=== PATIENT | female | born 1980 | race Caucasian/White ===

== ENCOUNTER 2017-11-29 22:26 | Emergency (ER) | payer MEDICAID ==
[2017-11-29] MEDS ORDERED: Bacitracin/Neomycin/Polymyxin B Oint 0.9 GM U/D Packet TOP ONE (22:33)
[2017-11-29] MEDS ORDERED: Diphtheria,Pertussis(Acell),Tetanus Vaccine 0.5 ML Syringe IM ONE (22:33)
--- NOTE | 2017-11-29 22:34 | EDM.PDOC ---
ED HPI GENERAL MEDICAL PROBLEM - General Chief Complaint: General Stated Complaint: "BARBWIRE POKED A HOLE IN MY SKIN" Time Seen by Provider: 11/29/17 22:29 Source of Information: Reports: Patient History Limitations: Reports: No Limitations - History of Present Illness INITIAL COMMENTS - FREE TEXT/NARRATIVE: Lacie is a 37 yo female who presents to the ER with concerns of a puncture wound to her left wrist. She states she had tripped on some dangelo wire and ended up falling into a dangelo. She noticed some bleeding right away but it had stopped. She has noticed some swelling to her wrist and discomfort now. Unknown Tetanus status. Onset: Today Location: Reports: Upper Extremity, Left Past Medical History Cardiovascular History: Reports: None Respiratory History: Reports: Asthma Musculoskeletal History: Reports: Back Pain, Chronic Psychiatric History: Reports: ADHD, Anxiety - Past Surgical History GI Surgical History: Reports: Cholecystectomy Female Surgical History: Reports: Hysterectomy Neurological Surgical History: Reports: Lumbar Spine (X5), Spinal Fusion Social & Family History - Tobacco Use Smoking Status *Q: Current Every Day Smoker - Alcohol Use Alcohol Use History: No ED ROS GENERAL - Review of Systems Review Of Systems: ROS reveals no pertinent complaints other than HPI. ED EXAM, GENERAL - Physical Exam Exam: See Below Exam Limited By: No Limitations General Appearance: Alert, No Apparent Distress Extremities: Normal Range of Motion, Other (normal strength and ROM of all distal digits. Full ROM of wrist. ) Neurological: No Motor/Sensory Deficits Skin Exam: Wound/Incision (Small puncture wound with hematoma noted to medial and ventral aspect left wrist. Small hematoma noted. No active bleeding noted. ) Departure - Departure Time of Disposition: 22:39 Disposition: Home, Self-Care 01 Condition: Good Clinical Impression: Puncture wound of wrist, left Qualifiers: Encounter type: initial encounter Qualified Code(s): S61.532A - Puncture wound without foreign body of left wrist, initial encounter - Discharge Information Instructions: Puncture Wound, [id number] Additional Instructions: 1) Keep wound clean and dry for 48 hours 2) Refrain from soaking affected area 3) Tetanus status addressed and updated today 4) If any complications or signs of infection (redness, warmth or drainage) return for reevaluation 5) Triple antibiotic ointment applied today. - Problem List & Annotations (1) Puncture wound of wrist, left SNOMED Code(s): 348308880, 020844604 Code(s): S61.532A - PUNCTURE WOUND W/O FOREIGN BODY OF LEFT WRIST, INIT ENCNTR Status: Acute Qualifiers: Encounter type: initial encounter Qualified Code(s): S61.532A - Puncture wound without foreign body of left wrist, initial encounter - Assessment/Plan Plan: Evaluated small puncture wound. No closure needed. Area cleansed. Dressing applied with DEDE. Tetanus updated today.
== END 2017-11-29 22:55 | disposition home or self-care (01) ==
LOC: CC.ED 22:26
DX: S61.532A Puncture wound without foreign body of left wrist, initial encounter (principal); F17.210 Nicotine dependence, cigarettes, uncomplicated; Z23 Encounter for immunization; W01.0XXA Fall on same level from slipping, tripping and stumbling without subsequent striking against object, initial encounter; W45.8XXA Other foreign body or object entering through skin, initial encounter
CPT/HCPCS: 90471; 90715; 99283

== ENCOUNTER 2017-12-17 19:35 | Emergency (ER) | payer SELFPAY ==
[2017-12-17] MEDS ORDERED: Lidocaine 1% with EPINEPHrine 1:100,000 20 ML MDV INJECT ONE (19:45)
[2017-12-17] MEDS ORDERED: Acetaminophen 500 MG Tab PO ONE (19:52)
[2017-12-17] MEDS ORDERED: Bacitracin/Neomycin/Polymyxin B Oint 0.9 GM U/D Packet TOP ONE (20:32)
--- NOTE | 2017-12-17 20:51 | EDM.PDOC ---
ED HPI GENERAL MEDICAL PROBLEM - General Chief Complaint: Head Injury Stated Complaint: HEAD LACERATION Time Seen by Provider: 12/17/17 19:45 Source of Information: Reports: Patient History Limitations: Reports: No Limitations - History of Present Illness INITIAL COMMENTS - FREE TEXT/NARRATIVE: Lacie is a 37 year old female who presents to the ED with c/o a laceration to her right forehead. She reports she was working on a house and a 4''x4'' board swung and hit her forehead. She denies any LOC at time of injury. Reports she does have a headache. Injury happened just prior to ED arrival. Denies any other complaints. Onset: Today, Sudden Onset Date: 12/17/17 Onset Time: 19:00 Duration: Constant Location: Reports: Head Quality: Reports: Ache Severity: Moderate Improves with: Reports: Cold Therapy Associated Symptoms: Reports: No Other Symptoms. Denies: Confusion, Loss of Appetite, Nausea/Vomiting, Syncope, Weakness Right Head Pain Score (Numeric/FACES): 8 - Related Data Allergies Allergy/AdvReac Type Severity Reaction Status Date / Time No Known Allergies Allergy Verified 12/17/17 19:46 Home Meds: Home Meds DULoxetine [Cymbalta] 60 mg PO DAILY 11/29/17 [History] Lisdexamfetamine Dimesylate [Vyvanse] 10 mg PO TID 11/29/17 [History] Prazosin [Minpress] 1 mg PO TID 11/29/17 [History] tiZANidine HCl [Tizanidine HCl] 2 mg PO TID 11/29/17 [History] Past Medical History Cardiovascular History: Reports: None Respiratory History: Reports: None Musculoskeletal History: Reports: Back Pain, Chronic Psychiatric History: Reports: ADHD, Anxiety, Depression - Past Surgical History GI Surgical History: Reports: Cholecystectomy Female Surgical History: Reports: Hysterectomy Neurological Surgical History: Reports: Lumbar Spine, Spinal Fusion Musculoskeletal Surgical History: Reports: Other (See Below) Other Musculoskeletal Surgeries/Procedures:: BACK FUSION Social & Family History - Tobacco Use Smoking Status *Q: Current Every Day Smoker Years of Tobacco use: 23 Packs/Tins Daily: 1 - Caffeine Use Caffeine Use: Reports: Coffee, Soda - Recreational Drug Use Recreational Drug Use: No ED ROS GENERAL - Review of Systems Review Of Systems: ROS reveals no pertinent complaints other than HPI. ED EXAM, HEAD INJURY - Physical Exam Exam: See Below Exam Limited By: No Limitations General Appearance: Alert, WD/WN, No Apparent Distress Head: Normocephalic, Scalp Lacerations, Scalp Hematoma, Active Bleeding, Other ( 3.5cm laceration to right forehead, 8 mm laceration to nose) Nexus Criteria: No: Posterior, Midline Cervical Tenderness, Evidence of Intoxication, Altered Level of Consciousness, Focal Neurological Deficit, Painful Distraction Injuries Eyes: Bilateral Eye: EOMI, Normal Fundi, Normal Inspection, PERRL Ears: Normal External Exam, Normal Canal, Hearing Grossly Normal, Normal TMs Nose: Other (8 mm laceration to bridge of nose) Throat/Mouth: Normal Inspection, Normal Lips, Normal Teeth, Normal Gums, Normal Oropharynx, Normal Voice, No Airway Compromise Neck: Non-Tender, Full Range of Motion, Normal Alignment, Normal Inspection Respiratory: No Respiratory Distress, Lungs Clear, Normal Breath Sounds, No Accessory Muscle Use, Chest Non-Tender Cardiovascular: Normal Peripheral Pulses, Regular Rate, Rhythm, No Edema, No Gallop, No JVD, No Murmur, No Rub Neurologic: dulite machine bluer II-XII nml As Tested, No Motor/Sensory Deficits, Alert, Normal Mood/Affect, Oriented x 3 - Osbaldo Coma Score Best Eye Response (Osbaldo): (4) Open Spontaneously Best Verbal Response ([place]): (5) Oriented Best Motor Response (Osbaldo): (6) Obeys Commands ED LACERATION/WOUND & ADRIANO PROC - Laceration/Wound Repair Right Anterior Forehead Lac/wound length in cm: 3.5 Appearance: Superficial, Clean Anesthetic Type: Local Local Anesthesia - Lidocaine (Xylocaine): 1% with EPI Local Anesthetic Volume: 5cc Skin Prep: Providone-Iodine (Betadine) Saline irrigation (cc's): 30 Exploration/Debridement/Repair: Wound Explored, No Foreign Material Found Closed with: Sutures Suture Size: other (6-0) # of Sutures: 11 Suture Type: Nylon Progress/Comments: No complications. Course - Vital Signs Last Recorded V/S: Last Vital Signs Temp 98.8 F 12/17/17 19:35 Pulse 96 12/17/17 19:35 Resp 18 12/17/17 19:35 BP 169/98 H 12/17/17 19:35 Pulse Ox 98 12/17/17 19:35 - Orders/Labs/Meds Meds: Medications Discontinued Medications Generic Name Dose Route Start Last Admin Trade Name Bronwyn PRN Reason Stop Dose Admin Acetaminophen 1,000 mg 12/17/17 19:52 12/17/17 20:40 Tylenol Extra Strength PO 12/17/17 19:53 1,000 mg ONETIME ONE Administration Lidocaine/Epinephrine 20 ml 12/17/17 19:45 12/17/17 19:55 Xylocaine 1% With Epinephrine 1:100,000 INJECT 12/17/17 19:46 8 ml ONETIME ONE Administration Neomycin/Polymyxin/Bacitracin 1 each 12/17/17 20:32 12/17/17 20:41 Triple Antibiotic Oint TOP 12/17/17 20:33 1 each ONETIME ONE Administration Departure - Departure Time of Disposition: 20:46 Disposition: Home, Self-Care 01 Condition: Good Clinical Impression: Hematoma Laceration of head Qualifiers: Encounter type: initial encounter Location of open wound of head: scalp Foreign body presence: without foreign body Qualified Code(s): S01.01XA - Laceration without foreign body of scalp, initial encounter - Discharge Information *PRESCRIPTION DRUG MONITORING PROGRAM REVIEWED*: Not Applicable *COPY OF PRESCRIPTION DRUG MONITORING REPORT IN PATIENT LAURIE: Not Applicable Instructions: Stitches, Unity, or Adhesive Wound Closure, [id number] Referrals: PCP,None [Primary Care Provider] - Forms: ED Department Discharge Additional Instructions: Ice to affected area intermittently for the next 48 hours Tylenol or ibuprofen as needed for headache Keep area clean and dry Neosporin to area twice daily Follow up Sunday for suture removal. Call clinic in morning to schedule appointment
== END 2017-12-17 21:05 | disposition home or self-care (01) ==
LOC: CC.ED 19:35
DX: S01.81XA Laceration without foreign body of other part of head, initial encounter (principal); S01.01XA Laceration without foreign body of scalp, initial encounter; F41.9 Anxiety disorder, unspecified; F32.9 Major depressive disorder, single episode, unspecified; F17.210 Nicotine dependence, cigarettes, uncomplicated; Z90.49 Acquired absence of other specified parts of digestive tract; W22.8XXA Striking against or struck by other objects, initial encounter; Z79.899 Other long term (current) drug therapy
CPT/HCPCS: 12013; 99282; A9270-GY

== ENCOUNTER 2017-12-18 13:13 | Emergency (ER) | payer SELFPAY ==
[2017-12-18] MEDS ORDERED: Ibuprofen 200 MG Tab PO ONE (15:29)
[2017-12-18] MEDS ORDERED: Acetaminophen 325 MG Tab PO ONE (15:29)
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
== END 2017-12-18 15:32 | disposition left against medical advice (07) ==
LOC: CC.ED 13:13
DX: S06.0X0A Concussion without loss of consciousness, initial encounter (principal); F17.210 Nicotine dependence, cigarettes, uncomplicated; W20.8XXA Other cause of strike by thrown, projected or falling object, initial encounter; Z79.899 Other long term (current) drug therapy
CPT/HCPCS: 70450; 99283

== ENCOUNTER 2018-12-14 12:37 | Emergency (ER) | payer SELFPAY ==
[2018-12-14] MEDS ORDERED: Cyclobenzaprine 10 MG Tab PO ONE ×2 (12:38→12:52)
[2018-12-14] MEDS ORDERED: Acetaminophen/HYDROcodone 325-5 MG Tab PO ONE (12:38)
[2018-12-14] MEDS ORDERED: Cyclobenzaprine 10 MG Tab ONE (12:41)
[2018-12-14] MEDS ORDERED: Ketorolac 60 MG/2 ML SDV ONE (12:42)
--- NOTE | 2018-12-14 12:50 | EDM.PDOC ---
ED HPI GENERAL MEDICAL PROBLEM - General Chief Complaint: Back Pain or Injury Stated Complaint: back pain Time Seen by Provider: 12/14/18 12:45 Source of Information: Reports: Patient, EMS History Limitations: Reports: No Limitations - History of Present Illness INITIAL COMMENTS - FREE TEXT/NARRATIVE: c/o her horse rolled over with her on it, has pain in the right hip and low back , did not hit her head, no LOC, no upper back or neck pain, no other sx, no numbness or tingling, does have a hx of low back problems with surg in the past Onset: Today Onset Date: 12/14/18 Onset Time: 11:45 Location: Reports: Back, Lower Extremity, Right Quality: Reports: Ache Severity: Moderate Improves with: Reports: None Worsens with: Reports: Movement Associated Symptoms: Reports: No Other Symptoms. Denies: Chest Pain, Nausea/ Vomiting, Shortness of Breath, Weakness Treatments EMPLOYMENT DIRECTOR: Reports: Other (see below) (none) Right Lower Back Pain Score (Numeric/FACES): 8 - Related Data Allergies Allergy/AdvReac Type Severity Reaction Status Date / Time No Known Allergies Allergy Verified 12/14/18 12:46 Home Meds: Home Meds Lisdexamfetamine Dimesylate [Vyvanse] 75 mg PO DAILY 11/29/17 [History] Methocarbamol [Robaxin] 500 mg PO TID 10 Days #30 tab 12/14/18 [Rx] Naproxen [Naprosyn] 500 mg PO Q12HR 10 Days #20 tab 12/14/18 [Rx] busPIRone HCl [Buspirone HCl] 75 mg PO DAILY PRN 12/14/18 [History] lamoTRIgine [Lamictal] 25 mg PO BID 12/14/18 [History] Past Medical History Cardiovascular History: Reports: None Respiratory History: Reports: None Musculoskeletal History: Reports: Back Pain, Chronic Psychiatric History: Reports: ADHD, Anxiety, Depression - Past Surgical History GI Surgical History: Reports: Cholecystectomy Female Surgical History: Reports: Hysterectomy Neurological Surgical History: Reports: Lumbar Spine, Spinal Fusion Musculoskeletal Surgical History: Reports: Other (See Below) Other Musculoskeletal Surgeries/Procedures:: BACK FUSION Social & Family History - Caffeine Use Caffeine Use: Reports: Coffee, Soda ED ROS GENERAL - Review of Systems Review Of Systems: See Below Constitutional: Reports: No Symptoms Respiratory: Reports: No Symptoms Cardiovascular: Reports: No Symptoms GI/Abdominal: Reports: No Symptoms. Denies: Abdominal Pain, Nausea, Vomiting : Reports: No Symptoms Musculoskeletal: Reports: Back Pain, Joint Pain. Denies: Neck Pain, Shoulder Pain Skin: Reports: No Symptoms. Denies: Bruising, Erythema Neurological: Reports: No Symptoms. Denies: Headache, Numbness, Tingling, Weakness Psychiatric: Reports: No Symptoms ED EXAM,LOWER BACK PAIN/INJURY - Physical Exam Exam: See Below Exam Limited By: No Limitations General Appearance: Alert, WD/WN, No Apparent Distress Ears: Normal External Exam Nose: Normal Inspection, Normal Mucosa Throat/Mouth: Normal Inspection, Normal Lips Head: Atraumatic, Normocephalic Neck: Normal Inspection, Supple, Non-Tender, Full Range of Motion Respiratory/Chest: No Respiratory Distress, Lungs Clear, Normal Breath Sounds Cardiovascular: Normal Peripheral Pulses, Regular Rate, Rhythm, No Edema, No Murmur GI/Abdominal: Soft, Non-Tender, No Distention Back Exam: Normal Inspection, Full Range of Motion, Other (generalized tenderness with palpation across the low back and right hip) Extremities: Normal Inspection, Normal Range of Motion, No Pedal Edema, Normal Capillary Refill. No: Non-Tender (as above) Neurological: Alert, Normal Mood/Affect, No Motor/Sensory Deficits, Oriented x 3 Skin Exam: Warm, Dry, Intact, Normal Color, No Rash. No: Ecchymosis, Erythema Course - Vital Signs Last Recorded V/S: Last Vital Signs Temp 36.4 C 12/14/18 12:37 Pulse 70 12/14/18 12:37 Resp 14 12/14/18 12:37 BP 128/78 12/14/18 12:37 Pulse Ox 99 12/14/18 12:37 - Orders/Labs/Meds Orders: Active Orders 24 hr Category Date Time Status Hip Min 2V or 3V w Pelvis Rt [CR] Stat Exams 12/14/18 12:51 Ordered Lumbar Spine 2 or 3V [CR] Stat Exams 12/14/18 12:51 Taken Acetaminophen/HYDROcodone [Take Home: Acetaminophen/ Med 12/14/18 13:28 Once HYDROcod, 2 Tab Pack] 2 packet PO ONETIME ONE Cyclobenzaprine [Take Home: Cyclobenzaprine 10 MG, 4 Med 12/14/18 13:29 Once Tab Pack] 2 packet PO ONETIME ONE Meds: Medications Discontinued Medications Generic Name Dose Route Start Last Admin Trade Name Bronwyn PRN Reason Stop Dose Admin Cyclobenzaprine HCl 10 mg 12/14/18 12:52 12/14/18 12:57 Flexeril PO 12/14/18 12:53 10 mg ONETIME ONE Administration Cyclobenzaprine HCl Confirm 12/14/18 12:41 Flexeril Administered 12/14/18 12:42 Dose 10 mg .ROUTE .STK-MED ONE Ketorolac Tromethamine 60 mg 12/14/18 12:51 12/14/18 12:57 Toradol IM 12/14/18 12:52 60 mg ONETIME ONE Administration Ketorolac Tromethamine Confirm 12/14/18 12:42 Toradol Administered 12/14/18 12:43 Dose 60 mg .ROUTE .STK-MED ONE Departure - Departure Time of Disposition: 13:24 Disposition: Home, Self-Care 01 Condition: Good Clinical Impression: Lumbar spine strain, Sprain of right hip - Discharge Information *PRESCRIPTION DRUG MONITORING PROGRAM REVIEWED*: Not Applicable *COPY OF PRESCRIPTION DRUG MONITORING REPORT IN PATIENT LAURIE: Not Applicable Prescriptions: Naproxen [Naprosyn] 500 mg PO Q12HR 10 Days #20 tab Methocarbamol [Robaxin] 500 mg PO TID 10 Days #30 tab Instructions: Low Back Sprain, Muscle Strain, [id number] Referrals: PCP,Unknown [Primary Care Provider] - Forms: ED Department Discharge Additional Instructions: increase fluids robaxin 500mg 3 x a day for 10 days naprosyn 500mg every 12 hours as needed for pain follow up with your family doctor this week, call sunday for an appointment time return to the ED sooner if worse or problems - Problem List & Annotations (1) Lumbar spine strain SNOMED Code(s): 516202993 Code(s): S39.012A - STRAIN OF MUSCLE, FASCIA AND TENDON OF LOWER BACK, INIT Status: Acute Priority: Medium Current Visit: Yes Qualifiers: Encounter type: initial encounter Qualified Code(s): S39.012A - Strain of muscle, fascia and tendon of lower back, initial encounter (2) Sprain of right hip SNOMED Code(s): 33534407 Code(s): S73.101A - UNSPECIFIED SPRAIN OF RIGHT HIP, INITIAL ENCOUNTER Status: Acute Priority: Medium Current Visit: Yes Qualifiers: Encounter type: initial encounter Qualified Code(s): S73.101A - Unspecified sprain of right hip, initial encounter - Problem List Review Problem List Initiated/Reviewed/Updated: Yes - My Orders Last 24 Hours: My Active Orders 12/14/18 12:51 Hip Min 2V or 3V w Pelvis Rt [CR] Stat Lumbar Spine 2 or 3V [CR] Stat 12/14/18 13:28 Acetaminophen/HYDROcodone [Take Home: Acetaminophen/HYDROcod, 2 Tab Pack] 2 packet PO ONETIME ONE 12/14/18 13:29 Cyclobenzaprine [Take Home: Cyclobenzaprine 10 MG, 4 Tab Pack] 2 packet PO ONETIME ONE - Assessment/Plan Last 24 Hours: My Active Orders 12/14/18 12:51 Hip Min 2V or 3V w Pelvis Rt [CR] Stat Lumbar Spine 2 or 3V [CR] Stat 12/14/18 13:28 Acetaminophen/HYDROcodone [Take Home: Acetaminophen/HYDROcod, 2 Tab Pack] 2 packet PO ONETIME ONE 12/14/18 13:29 Cyclobenzaprine [Take Home: Cyclobenzaprine 10 MG, 4 Tab Pack] 2 packet PO ONETIME ONE
[2018-12-14] MEDS ORDERED: Ketorolac 60 MG/2 ML SDV IM ONE (12:51)
[2018-12-14] MEDS ORDERED: Take Home: Acetaminophen/HYDROcodone 325-5 MG, 2 Tab Pack PO ONE (13:28)
[2018-12-14] MEDS ORDERED: Take Home: Cyclobenzaprine 10 MG Tab, 4 Tab Pack PO ONE (13:29)
== END 2018-12-14 13:56 | disposition home or self-care (01) ==
LOC: CC.ED 12:37
DX: S73.101A Unspecified sprain of right hip, initial encounter (principal); S39.012A Strain of muscle, fascia and tendon of lower back, initial encounter; F41.9 Anxiety disorder, unspecified; F32.9 Major depressive disorder, single episode, unspecified; F90.9 Attention-deficit hyperactivity disorder, unspecified type; Z79.899 Other long term (current) drug therapy; V80.010A Animal-rider injured by fall from or being thrown from horse in noncollision accident, initial encounter
CPT/HCPCS: 72100; 96372; 99283-25; A9270-GY; J1885

== ENCOUNTER 2019-01-13 13:36 | Emergency (ER) | payer MEDICAID ==
[~2019-01-13 13:36] MED LIST: traMADol 50 MG Tab PO ONE
--- NOTE | 2019-01-13 15:00 | EDM.PDOC ---
ED HPI GENERAL MEDICAL PROBLEM - General Chief Complaint: General Stated Complaint: RT KNEE HURT Time Seen by Provider: 01/13/19 14:10 Source of Information: Reports: Patient History Limitations: Reports: No Limitations - History of Present Illness INITIAL COMMENTS - FREE TEXT/NARRATIVE: Lacie is a 39 yo female who presents to the ED with complaints of right knee pain. States she had her left foot in a stirrup on a horse and went to throw her right leg over the horse. She admits she heard a pop and now has noticed swelling on her right knee. She admits when she steps on it something isn't right. She denies any prior injury to the right knee. Unsure how she could have injured it by just swinging her leg over a horse. Right Knee Pain Score (Numeric/FACES): 7 - Related Data Allergies Allergy/AdvReac Type Severity Reaction Status Date / Time No Known Allergies Allergy Verified 01/13/19 13:47 Home Meds: Home Meds Lisdexamfetamine Dimesylate [Vyvanse] 75 mg PO DAILY 11/29/17 [History] busPIRone HCl [Buspirone HCl] 30 mg PO BID PRN 12/14/18 [History] Methocarbamol [Robaxin] 500 mg PO ASDIRECTED PRN 01/13/19 [History] Naproxen [Naprosyn] 500 mg PO Q12HR PRN 01/13/19 [History] Past Medical History Cardiovascular History: Reports: None Respiratory History: Reports: None Gastrointestinal History: Reports: Cholelithiasis 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 Musculoskeletal History: Reports: Back Pain, Chronic Neurological History: Reports: Migraines Psychiatric History: Reports: ADHD, Anxiety, Depression - Past Surgical History GI Surgical History: Reports: Cholecystectomy Female Surgical History: Reports: Hysterectomy Neurological Surgical History: Reports: Lumbar Spine, Spinal Fusion Musculoskeletal Surgical History: Reports: Other (See Below) Other Musculoskeletal Surgeries/Procedures:: BACK FUSION Social & Family History - Family History Family Medical History: Noncontributory - Tobacco Use Smoking Status *Q: Current Every Day Smoker Years of Tobacco use: 30 Packs/Tins Daily: 1 - Caffeine Use Caffeine Use: Reports: Coffee, Soda - Recreational Drug Use Recreational Drug Use: No ED ROS GENERAL - Review of Systems Review Of Systems: ROS reveals no pertinent complaints other than HPI. Musculoskeletal: Reports: Joint Pain (right knee) Neurological: Reports: Difficulty Walking ED EXAM, GENERAL - Physical Exam Exam: See Below Exam Limited By: No Limitations General Appearance: Alert, No Apparent Distress Extremities: Other (Full ROM of right knee. Negative Prem's, lateral and medial. Negative anterior and posterior drawer. Negative Uriah's. No increased valgus or varus stretch. Patella intact. Tenderness with palpation to medial and lateral aspect of knee along joint line. Patellar tendon intact. Mild joint effusion noted. ) Course - Vital Signs Last Recorded V/S: Last Vital Signs Temp 98.1 F 01/13/19 13:55 Pulse 114 H 01/13/19 13:55 Resp 18 01/13/19 13:55 BP 128/93 H 01/13/19 13:55 Pulse Ox 97 01/13/19 13:55 - Orders/Labs/Meds Orders: Active Orders 24 hr Category Date Time Status Knee 3V Rt [CR] Routine Exams 01/13/19 Ordered Departure - Departure Time of Disposition: 14:58 Disposition: Home, Self-Care 01 Clinical Impression: Right knee sprain Qualifiers: Encounter type: initial encounter Involved ligament of knee: other ligament Qualified Code(s): S83.8X1A - Sprain of other specified parts of right knee, initial encounter - Discharge Information Instructions: Knee Sprain, Adult, [id number] Referrals: PCP,None [Primary Care Provider] - Additional Instructions: 1) Recommend wearing brace that was placed today when ambulating 2) Advise resting knee today and keeping it elevated. Ice 20 minutes at a time, 5 times a day for next 48 hours 3) Encourage alternating Tylenol and ibuprofen every 4 hours as needed for pain 4) Tramadol 50mg - take home pack supplied, advised only using for break thru pain 5) If symptoms persist or no improvement in the next 2 weeks, advise reevaluation. - Problem List & Annotations (1) Right knee sprain SNOMED Code(s): 90270306 Code(s): S83.91XA - SPRAIN OF UNSPECIFIED SITE OF RIGHT KNEE, INITIAL ENCOUNTER Status: Acute Current Visit: Yes Qualifiers: Encounter type: initial encounter Involved ligament of knee: other ligament Qualified Code(s): S83.8X1A - Sprain of other specified parts of right knee, initial encounter - My Orders Last 24 Hours: My Active Orders 01/13/19 Knee 3V Rt [CR] Routine - Assessment/Plan Last 24 Hours: My Active Orders 01/13/19 Knee 3V Rt [CR] Routine Plan: X-ray of right knee show no acute findings. Knee brace applied today. See additional instructions.
[2019-01-13] MEDS: Take Home: traMADol 50 MG, 4 Tab Pack PO ONE (15:20)
== END 2019-01-13 15:12 | disposition home or self-care (01) ==
LOC: CC.ED 13:36
DX: S83.8X1A Sprain of other specified parts of right knee, initial encounter (principal); F41.9 Anxiety disorder, unspecified; F17.210 Nicotine dependence, cigarettes, uncomplicated; Z79.899 Other long term (current) drug therapy; X50.1XXA Overexertion from prolonged static or awkward postures, initial encounter; Y93.52 Activity, horseback riding
CPT/HCPCS: 29505; 73562-RT; 99283-25; A9270-GY

== ENCOUNTER 2019-11-25 22:16 | Emergency (ER) | payer MEDICAID ==
[~2019-11-25 22:16] MED LIST changes: +Morphine 4 MG/ML VIAL ONE; -traMADol 50 MG Tab PO ONE
[2019-11-25] MEDS ORDERED: Morphine 10 MG/ML SDV IVPUSH ONE (22:17)
[2019-11-25] MEDS ORDERED: Morphine 4 MG/ML VIAL IVPUSH ONE (22:26)
[2019-11-25] MEDS ORDERED: ceFAZolin 1 GM Vial IVPUSH ONE (22:33)
[2019-11-25 23:03] LABS: CHLORIDE,CL 104 mEq/L (98-106); SODIUM,NA 139 mEq/L (136-145)
--- NOTE | 2019-11-25 23:04 | EDM.PDOC ---
ED HPI GENERAL MEDICAL PROBLEM - General Chief Complaint: Laceration Stated Complaint: multiple finger lacerations Time Seen by Provider: 11/25/19 22:17 Source of Information: Reports: Patient History Limitations: Reports: No Limitations - History of Present Illness INITIAL COMMENTS - FREE TEXT/NARRATIVE: Lacie is a 39 yo female who presents to the ED via private vehicle with concerns of an amputation to her fingers. 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 She states the horse took off and her hand went thru a ring on the trailer. States she isn't able to feel her left fingers or move them. States she did look right away and feels her fingers are almost completely amputated. States her right hand was involved as well but able to feel all distal digits. Tdap given October 2017. Location: Reports: Upper Extremity, Left, Upper Extremity, Right Left Hand Pain Score (Numeric/FACES): 10 - Related Data Allergies Allergy/AdvReac Type Severity Reaction Status Date / Time No Known Allergies Allergy Verified 11/25/19 22:28 Home Meds: Home Meds Lisdexamfetamine Dimesylate [Vyvanse] 75 mg PO DAILY 11/29/17 [History] busPIRone HCl [Buspirone HCl] 30 mg PO BID PRN 12/14/18 [History] Naproxen [Naprosyn] 500 mg PO Q12HR PRN 01/13/19 [History] methocarbamoL [Robaxin] 500 mg PO ASDIRECTED PRN 01/13/19 [History] SUMAtriptan [Imitrex] 25 mg PO BID PRN 06/21/19 [History] Past Medical History Cardiovascular History: Reports: None Respiratory History: Reports: None Gastrointestinal History: Reports: Cholelithiasis 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 Musculoskeletal History: Reports: Back Pain, Chronic Neurological History: Reports: Migraines Psychiatric History: Reports: ADHD, Anxiety, Depression - Past Surgical History GI Surgical History: Reports: Cholecystectomy Female Surgical History: Reports: Hysterectomy Neurological Surgical History: Reports: Lumbar Spine, Spinal Fusion Musculoskeletal Surgical History: Reports: Other (See Below) Other Musculoskeletal Surgeries/Procedures:: BACK FUSION Social & Family History - Family History Family Medical History: Noncontributory - Caffeine Use Caffeine Use: Reports: Coffee, Soda Review of Systems - Review of Systems Review Of Systems: See Below Constitutional: Denies: Chills, Fever Eyes: Reports: No Symptoms Ears: Reports: No Symptoms Nose: Reports: No Symptoms Mouth/Throat: Reports: No Symptoms Respiratory: Reports: No Symptoms Cardiovascular: Reports: No Symptoms GI/Abdominal: Reports: No Symptoms Genitourinary: Reports: No Symptoms Musculoskeletal: Reports: Hand Pain Skin: Reports: Wound (bilateral hands) Neurological: Reports: Numbness Psychiatric: Reports: Anxiety ED EXAM, GENERAL - Physical Exam Exam: See Below Exam Limited By: No Limitations General Appearance: Alert, Severe Distress Ears: Normal External Exam, Hearing Grossly Normal Nose: Normal Inspection Throat/Mouth: Normal Inspection, Normal Lips, Normal Voice, No Airway Compromise Head: Atraumatic, Normocephalic Neck: Normal Inspection, Supple Respiratory/Chest: No Respiratory Distress, Lungs Clear, Normal Breath Sounds, No Accessory Muscle Use Cardiovascular: Regular Rate, Rhythm, No Edema, No Murmur Extremities: Other (Partial amputations to the 3-5 digits of the left hand just distal to the MCP joint. No sensation with palpation to distal digits. No movement of 3-5th digits of left hand. Concerns of vascular compromise of 3-5th digits of left hand. Laceration to the middle phalanx of the 2nd digit of left hand. ) Skin Exam: Wound/Incision (Extensive tissue damage to 3rd thru 5th digits of the left hand with likely neurovascular compromise. 1.5 cm laceration to the 3rd digit of right hand just proximal to nail bed. 1cm laceration to right 5th digit. ) Course - Vital Signs Last Recorded V/S: Last Vital Signs Temp 98.9 F 11/25/19 23:35 Pulse 84 11/25/19 23:35 Resp 18 11/25/19 23:35 BP 179/103 H 11/25/19 23:35 Pulse Ox 97 11/25/19 23:35 - Orders/Labs/Meds Orders: Active Orders 24 hr Category Date Time Status Hand 2V Lt [CR] Stat Exams 11/25/19 22:36 Ordered Hand 2V Rt [CR] Stat Exams 11/25/19 22:46 Ordered Sodium Chloride 0.9% [Normal Saline] 1,000 ml Med 11/25/19 23:45 Active IV ASDIRECTED Medication Orders Sodium Chloride (Normal Saline) 1,000 mls @ 150 mls/hr IV ASDIRECTED DMITRY Last Admin: 11/26/19 00:03 Dose: 150 mls/hr Documented by: Labs: Laboratory Tests 11/25/19 11/25/19 Range/Units 22:52 22:52 WBC 17.8 H (5.0-10.0) 10^3/uL RBC 4.24 (4.00-5.50) 10^6/uL Hgb 12.2 (12.0-16.0) g/dL Hct 36.8 L (37.0-47.0) % MCV 86.8 (82.0-94.0) fL MCH 28.8 (27.0-32.0) pg MCHC 33.2 (33.0-38.0) g/dL RDW Coeff of Sherine 15.0 (11.0-15.0) % Plt Count 343 (150-400) 10^3/uL Neut % (Auto) 59.2 (35-85) % Lymph % (Auto) 32.7 (10-55) % Teller % (Auto) 4.3 (0-16) % Eos % (Auto) 3.6 (0-5) % Baso % (Auto) 0.2 (0-3) % Neut # (Auto) 10.52 H (1.80-7.00) 10^3/uL Lymph # (Auto) 5.81 H (1.00-4.80) 10^3/uL Teller # (Auto) 0.77 (0.00-0.80) 10^3/uL Eos # (Auto) 0.64 H (0.00-0.45) 10^3/uL Baso # (Auto) 0.04 10^3/uL Sodium 139 (136-145) mEq/L Potassium 3.6 (3.5-5.0) mEq/L Chloride 104 (98-106) mEq/L Carbon Dioxide 28 (21-32) mmol/L BUN 11 (7-18) mg/dL Creatinine 0.8 (0.6-1.0) mg/dL Est Cr Clr Drug Dosing TNP Estimated GFR (MDRD) > 60 (>=60) mL/min Glucose 137 H (75-99) mg/dL Calcium 8.8 (8.4-10.1) mg/dL Meds: Medications Generic Name Dose Route Start Last Admin Trade Name Bronwyn PRN Reason Stop Dose Admin Sodium Chloride 1,000 mls @ 150 mls/hr 11/25/19 23:45 11/26/19 00:03 Normal Saline IV 150 mls/hr ASDIRECTED DMITRY Administration Discontinued Medications Generic Name Dose Route Start Last Admin Trade Name Bronwyn PRN Reason Stop Dose Admin Cefazolin Sodium 1 gm 11/25/19 22:33 11/25/19 22:55 Ancef IVPUSH 11/25/19 22:34 1 gm ONETIME ONE Administration Hydromorphone HCl 1 mg 11/25/19 23:05 11/25/19 23:10 Dilaudid IVPUSH 11/25/19 23:06 1 mg ONETIME ONE Administration Morphine Sulfate Confirm 11/25/19 22:03 11/25/19 23:31 Morphine Administered 11/25/19 22:04 Not Given Dose 8 mg .ROUTE .STK-MED ONE Morphine Sulfate 8 mg 11/25/19 22:26 11/25/19 22:27 Morphine IVPUSH 11/25/19 22:27 8 mg ONETIME ONE Administration Morphine Sulfate 2 mg 11/25/19 23:50 11/25/19 23:59 Morphine IVPUSH 11/25/19 23:51 2 mg ONETIME ONE Administration - Radiology Interpretation Free Text/Narrative:: X-ray of left hand shows complete displaced fractures at the proximal phalange (midshaft) of the 3rd -5th digits. Fracture of the middle phalange of 2nd digit. No fractures seen on images of the right hand. - Re-Assessments/Exams Free Text/Narrative Re-Assessment/Exam: Left hand was irrigated with sterile water and wrapped in gauze soaked in sterile water. Right hand lacerations were cleansed with sterile water and dressing applied. Departure - Departure Time of Disposition: 00:18 Disposition: DC/Tfer to [facility] 02 Clinical Impression: Partial traumatic amputation of left middle finger through phalanx, Partial traumatic amputation of left little finger through phalanx, Partial traumatic amputation of left index finger through phalanx, Laceration of finger of right hand, Fracture of middle phalanx of finger of left hand - Discharge Information Forms: ED Department Discharge Sepsis Event Note (ED) - Focused Exam Vital Signs: Vital Signs Temp Pulse Resp BP Pulse Ox 11/25/19 23:35 98.9 F 84 18 179/103 H 97 11/25/19 23:00 98.9 F 90 18 161/104 H 97 11/25/19 22:56 98.9 F 89 18 149/93 H 96 - Problem List & Annotations (1) Partial traumatic amputation of left middle finger through phalanx SNOMED Code(s): 36379877, 145179587, 03944139191644653 Code(s): S68.623A - PARTIAL TRAUMATIC TRNSPHAL AMPUTATION OF L MID FINGER, INIT Status: Acute Priority: High Qualifiers: Encounter type: initial encounter Qualified Code(s): S68.623A - Partial traumatic transphalangeal amputation of left middle finger, initial encounter (2) Partial traumatic amputation of left little finger through phalanx SNOMED Code(s): 47942159, 347673320, 34477613832754221 Code(s): S68.627A - PARTIAL TRAUMATIC TRNSPHAL AMP OF L LITTLE FINGER, INIT Status: Acute Priority: High Qualifiers: Encounter type: initial encounter Qualified Code(s): S68.627A - Partial traumatic transphalangeal amputation of left little finger, initial encounter (3) Partial traumatic amputation of left index finger through phalanx SNOMED Code(s): 58822126, 619347857, 71184301240362796 Code(s): S68.621A - PARTIAL TRAUMATIC TRNSPHAL AMPUTATION OF L IDX FNGR, INIT Status: Acute Priority: High Qualifiers: Encounter type: initial encounter Qualified Code(s): S68.621A - Partial traumatic transphalangeal amputation of left index finger, initial encounter (4) Fracture of middle phalanx of finger of left hand SNOMED Code(s): 781364009, 78276878890438399 Code(s): S62.629A - DISP FX OF MIDDLE PHALANX OF UNSPECIFIED FINGER, INIT Status: Acute (5) Laceration of finger of right hand SNOMED Code(s): 782748622 Code(s): S61.219A - LACERATION W/O FB OF UNSP FINGER W/O DAMAGE TO NAIL, INIT Status: Acute Qualifiers: Encounter type: initial encounter Finger: middle finger Damage to nail status: unspecified Foreign body presence: without foreign body Qualified Code(s): S61.212A - Laceration without foreign body of right middle finger without damage to nail, initial encounter - My Orders Last 24 Hours: My Active Orders 11/25/19 22:36 Hand 2V Lt [CR] Stat 11/25/19 22:46 Hand 2V Rt [CR] Stat 11/25/19 23:45 Sodium Chloride 0.9% [Normal Saline] 1,000 ml IV ASDIRECTED - Assessment/Plan Last 24 Hours: My Active Orders 11/25/19 22:36 Hand 2V Lt [CR] Stat 11/25/19 22:46 Hand 2V Rt [CR] Stat 11/25/19 23:45 Sodium Chloride 0.9% [Normal Saline] 1,000 ml IV ASDIRECTED Plan: Immediately consulted with Dr. Copeland, hand surgeon, at [facility] in [place]. He did review images and after discussion of patients limb status felt she needed further evaluation with concerns of neurovascular compromise of the fingers. Advised consulting with [facility] in [place]. [facility] kindly helped with consultation at [facility] and while consulting were able to arrange fix winger transfer via [facility]. Dr. Dean Esteves, ED physician, kindly accepted transfer. Patient remained stable during entire time in ED. After discussion with [facility], elected to transport patient in my care to the airport to prevent delay of transfer time for surgical intervention. Risks and benefits of transfer were discussed into detail with Lacie. Risks of transfer included worsening of condition, possible loss of digits, aircraft/vehicle accident, . Benefits of transfer included appropriate surgical interventions and higher level of care. Risks of non-transfer included worsening of condition, no appropriate surgical intervention. Benefits of non- transfer included staying in familiar environment and close to home. Pt verbalized understanding and in agreement with transfer via fixed wing.
[2019-11-25] MEDS ORDERED: HYDROmorphone 1 MG/ML Syringe IVPUSH ONE (23:05)
[2019-11-25] MEDS ORDERED: Sodium Chloride 0.9% 1,000 ML IV SCH (23:45)
[2019-11-25] MEDS ORDERED: Morphine 2 MG/ML SYRINGE IVPUSH ONE (23:50)
== END 2019-11-26 00:30 ==
LOC: CC.ED 22:16
DX: S68.627A Partial traumatic transphalangeal amputation of left little finger, initial encounter (principal); S68.623A Partial traumatic transphalangeal amputation of left middle finger, initial encounter; S68.621A Partial traumatic transphalangeal amputation of left index finger, initial encounter; S61.212A Laceration without foreign body of right middle finger without damage to nail, initial encounter; S61.216A Laceration without foreign body of right little finger without damage to nail, initial encounter; F90.9 Attention-deficit hyperactivity disorder, unspecified type; Z79.899 Other long term (current) drug therapy
CPT/HCPCS: 36415; 73120-LT; 73120-RT; 80048; 85025; 96374; 96375; 99284-25; J0690; J1170; J2270; J7030

== ENCOUNTER 2019-12-02 10:38 | Emergency (ER) | payer MEDICAID ==
[2019-12-02] MEDS ORDERED: Bacitracin/Neomycin/Polymyxin B Oint 0.9 GM U/D Packet TOP ONE (11:33)
[2019-12-02 11:34] LABS: CHLORIDE,CL 100 mEq/L (98-106); SODIUM,NA 135 mEq/L (136-145)
--- NOTE | 2019-12-02 12:19 | EDM.PDOC ---
ED HPI GENERAL MEDICAL PROBLEM - General Chief Complaint: General Stated Complaint: LT HAND Time Seen by Provider: 12/02/19 11:10 Source of Information: Reports: Patient History Limitations: Reports: No Limitations - History of Present Illness INITIAL COMMENTS - FREE TEXT/NARRATIVE: Capri is a 39 yr old female who presents to the emergency room with complaints of not feeling well. States she was feeling well yesterday but today she is just really tired. Had traumatic amputation of her left 3rd and 4th digits last Sunday and was treated at [facility]. She states her hand has been wrapped with casting material and dressing since and advised to not take off until follow up appointment this . States she does have some hand discomfort but nothing really different since discharge from [facility]. States she hasn't had any fevers. Denies any warmth to hand or any concerns otherwise. She states she had gradually not felt well though, unsure if it is medication induced. States she is taking ES Tylenol, Oxycodone and Gabapentin. States she is on Cephalexin as well for prophylaxis for infection. States she has reached out to the plastic surgeon and did get a voicemail back from him today. States he will call again in a few hours. Left Hand Pain Score (Numeric/FACES): 8 - Related Data Allergies Allergy/AdvReac Type Severity Reaction Status Date / Time No Known Allergies Allergy Verified 12/02/19 10:50 Home Meds: Home Meds Lisdexamfetamine Dimesylate [Vyvanse] 75 mg PO DAILY 11/29/17 [History] busPIRone HCl [Buspirone HCl] 10 mg PO BID 12/14/18 [History] Naproxen [Naprosyn] 500 mg PO Q12HR PRN 01/13/19 [History] DULoxetine [Cymbalta] 30 mg PO BID 12/02/19 [History] Gabapentin [Gralise] 300 mg PO TID 12/02/19 [History] cephALEXin [Cephalexin] 500 mg PO QID 12/02/19 [History] hydrOXYzine HCL [Hydroxyzine HCl] 1 - 2 tab PO Q6HR PRN 12/02/19 [History] oxyCODONE 5 mg PO Q3HR PRN 12/02/19 [History] Past Medical History Cardiovascular History: Reports: None Respiratory History: Reports: None Gastrointestinal History: Reports: Cholelithiasis 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 Middle finger and ring finger amputation on L) hand. Social & Family History - Family History Family Medical History: Noncontributory - Tobacco Use Smoking Status *Q: Current Every Day Smoker Years of Tobacco use: 20 Packs/Tins Daily: 0.5 Used Tobacco, but Quit: No Second Hand Smoke Exposure: No - Caffeine Use Caffeine Use: Reports: None - Recreational Drug Use Recreational Drug Use: No ED ROS GENERAL - Review of Systems Review Of Systems: See Below Constitutional: Reports: Fatigue. Denies: Fever, Chills, Decreased Appetite HEENT: Reports: No Symptoms Respiratory: Denies: Shortness of Breath, Wheezing, Cough Cardiovascular: Denies: Chest Pain, Lightheadedness, Palpitations GI/Abdominal: Reports: No Symptoms. Denies: Bloody Stool, Constipation, Letty rrhea, Nausea, Vomiting : Reports: No Symptoms, Other (had catheter while in hospital) Musculoskeletal: Reports: Hand Pain (consistent since surgery) Skin: Reports: No Symptoms Neurological: Reports: No Symptoms Psychiatric: Reports: No Symptoms ED EXAM, GENERAL - Physical Exam Exam: See Below Exam Limited By: No Limitations General Appearance: Alert, No Apparent Distress Neck: Normal Inspection Respiratory/Chest: No Respiratory Distress, Lungs Clear, Normal Breath Sounds, No Accessory Muscle Use Cardiovascular: Regular Rate, Rhythm, No Edema, No Murmur Extremities: Other (foul odor noted to left hand. Splint/dressing is intact. Distal tips seen and appear to have a rubber aparatus attached. No drainage noted. ) Psychiatric: Normal Affect, Normal Mood Skin Exam: Warm, Dry Course - Vital Signs Last Recorded V/S: Last Vital Signs Temp 97.4 F 12/02/19 11:00 Pulse 100 12/02/19 11:00 Resp 16 12/02/19 11:00 BP 142/87 H 12/02/19 11:00 Pulse Ox 99 12/02/19 11:00 - Orders/Labs/Meds Labs: Laboratory Tests 12/02/19 12/02/19 12/02/19 Range/Units 11:05 11:05 11:28 WBC 15.5 H (5.0-10.0) 10^3/uL RBC 3.65 L (4.00-5.50) 10^6/uL Hgb 10.5 L (12.0-16.0) g/dL Hct 32.2 L (37.0-47.0) % MCV 88.2 (82.0-94.0) fL MCH 28.8 (27.0-32.0) pg MCHC 32.6 L (33.0-38.0) g/dL RDW Coeff of Sherine 15.4 H (11.0-15.0) % Plt Count 458 H (150-400) 10^3/uL Neut % (Auto) 64.5 (35-85) % Lymph % (Auto) 23.4 (10-55) % [place]o % (Auto) 5.6 (0-16) % Eos % (Auto) 6.2 H (0-5) % Baso % (Auto) 0.3 (0-3) % Neut # (Auto) 10.01 H (1.80-7.00) 10^3/uL Lymph # (Auto) 3.64 (1.00-4.80) 10^3/uL Otero # (Auto) 0.87 H (0.00-0.80) 10^3/uL Eos # (Auto) 0.96 H (0.00-0.45) 10^3/uL Baso # (Auto) 0.05 10^3/uL Sodium 135 L (136-145) mEq/L Potassium 4.4 D (3.5-5.0) mEq/L Chloride 100 (98-106) mEq/L Carbon Dioxide 26 (21-32) mmol/L BUN 10 (7-18) mg/dL Creatinine 0.8 (0.6-1.0) mg/dL Est Cr Clr Drug Dosing 89.99 mL/min Estimated GFR (MDRD) > 60 (>=60) mL/min Glucose 212 H D (75-99) mg/dL Calcium 9.4 (8.4-10.1) mg/dL Total Bilirubin 0.2 (0.0-1.0) mg/dL AST 17 (15-37) U/L ALT 41 (12-78) U/L Alkaline Phosphatase 97 (46-116) U/L C-Reactive Protein 7.3 H (0.2-0.8) mg/dL Total Protein 8.1 (6.4-8.2) g/dL Albumin 3.4 (3.4-5.0) g/dL Urine Color Yellow (YELLOW) Urine Appearance Clear (CLEAR) Urine pH 7.5 (4.5-8.0) Ur Specific [place] 1.020 (1.003-1.020) Urine Protein Negative (NEGATIVE) mg/dL Urine Glucose (UA) Negative (NEGATIVE) mg/dL Urine Ketones Negative (NEGATIVE) mg/dL Urine Occult Blood Negative (NEGATIVE) Urine Nitrite Negative (NEGATIVE) Urine Bilirubin Negative (NEGATIVE) Urine Urobilinogen 0.2 (0.2-1.0) EU/dL Ur Leukocyte Esterase Negative (NEGATIVE) Meds: Medications Discontinued Medications Generic Name Dose Route Start Last Admin Trade Name Freq PRN Reason Stop Dose Admin Neomycin/Polymyxin/Bacitracin 1 each 12/02/19 11:33 12/02/19 11:38 Triple Antibiotic Oint TOP 12/02/19 11:34 1 each ONETIME ONE Administration Departure - Departure Time of Disposition: 12:21 Disposition: Home, Self-Care 01 Clinical Impression: General ill feeling, Status post reattachment of traumatically amputated body part - Discharge Information Referrals: PCP,Unknown [Primary Care Provider] - Additional Instructions: 1) Labs overall are unremarkable today, WBC is slightly elevated but down from last week 2) Attempted to evaluate hand which didn't feel comfortable removing without discussing with plastic surgeon 3) Ilana wishes to go back to [place] and they plan on traveling today 4) Advise if any fevers, worsening of pain, drainage, or any concerns at all... Advise reevaluation 5) If surgeon doesn't return call will be in contact with Ilana and attempt contacting surgeon, Ilana was in agreement. Sepsis Event Note (ED) - Evaluation Sepsis Screening Result: No Definite Risk - Focused Exam Vital Signs: Vital Signs Temp Pulse Resp BP Pulse Ox 12/02/19 11:00 97.4 F 100 16 142/87 H 99 - Problem List & Annotations (1) General ill feeling SNOMED Code(s): 019643803 Code(s): R68.89 - OTHER GENERAL SYMPTOMS AND SIGNS Status: Acute Current Visit: Yes (2) Status post reattachment of traumatically amputated body part SNOMED Code(s): 430018031, 896699919 Code(s): Z98.890 - OTHER SPECIFIED POSTPROCEDURAL STATES Status: Acute Current Visit: Yes - Assessment/Plan Plan: Unable to fully assess hand today d/t dressing in place. Since patient is going back to [place], felt we would wait and let them remove dressing. Advise continuing with antibiotic and current pain management. If any symptoms arise as discussed, advise reevaluation.
== END 2019-12-02 12:35 | disposition home or self-care (01) ==
LOC: CC.ED 10:38
DX: R69 Illness, unspecified (principal); Z89.022 Acquired absence of left finger(s); F41.9 Anxiety disorder, unspecified; F32.9 Major depressive disorder, single episode, unspecified; F17.210 Nicotine dependence, cigarettes, uncomplicated; Z79.899 Other long term (current) drug therapy
CPT/HCPCS: 36415; 80053; 81003; 85025; 86140; 99283

== ENCOUNTER 2023-11-18 12:44 | Emergency (ER) | payer MEDICAID ==
[2023-11-18] MEDS: Orphenadrine 60 MG/2 ML Inj IM ONE (13:26)
[2023-11-18] MEDS: methylPREDNISolone Sodium Succinate 40 MG/1 ML SDV IM ONE (13:26)
[2023-11-18] MEDS: Take Home: Acetaminophen/HYDROcodone 325-5 MG, 2 Tab Pack PO ONE (13:27)
[2023-11-18] MEDS: methylPREDNISolone Sodium Succinate 125 MG/2 ML SDV ONE (13:27)
== END 2023-11-18 13:45 | disposition home or self-care (01) ==
LOC: CC.ED 12:44
DX: S39.012A Strain of muscle, fascia and tendon of lower back, initial encounter (principal); Z90.49 Acquired absence of other specified parts of digestive tract; Z90.710 Acquired absence of both cervix and uterus; Z79.899 Other long term (current) drug therapy; Z79.2 Long term (current) use of antibiotics
CPT/HCPCS: 96372; 99283; A9270-GY; J2360; J2919